=== PATIENT | female | born 1985 | race Two or more races ===

== ENCOUNTER 2017-04-15 13:29 | Inpatient (IN) | payer MEDICAID ==
[~2017-04-15] VITALS: Ht 152.4 cm; Wt 70.8 kg
[2017-04-15] MEDS ORDERED: SODIUM CHLORIDE 0.9% 500 ML IVB ONE (13:48)
[2017-04-15 14:38] LABS: Basophils # (auto) 0.1 uL; Basophils % (auto) 0.7 % (0.0-2.0); Eosinophils # (auto) 0.6 uL; Eosinophils % (auto) 7.4 % (0.0-7.0); Hematocrit 42.2 % (36.0-46.0); Hemoglobin 14.4 g/dL (12.2-16.2); Lymphocytes # (auto) 2.1 uL; Lymphocytes % (auto) 25.6 % (10.0-50.0); Mean Corpuscular Hemoglobin 31.5 pg (28.0-32.0); Mean Corpuscular Hgb Conc. 34.1 g/dL (32.0-36.0); Mean Corpuscular Volume 92.2 fL (80.0-100.0); Mean Platelet Volume 8.4 fL (6.9-10.8); Monocytes # (auto) 0.5 uL; Monocytes % (auto) 6.5 % (0.0-12.0); Neutrophils # (auto) 4.9 uL; Neutrophils % (auto) 59.8 % (37.0-80.0); Platelet Count (auto) 207 10^3/uL (140-450); White Blood Cell 8.2 10^3/uL (4.4-10.8)
[2017-04-15 14:52] LABS: Alkaline Phosphatase 106 U/L (45-117); Anion Gap 8 (5-15); Aspartate Aminotransferase 16 U/L (15-37); BUN/Creatinine Ratio 9.2; Bilirubin, Total 0.3 mg/dL (0.2-1.0); Blood Urea Nitrogen 7 mg/dL (7-18); Calcium 9.2 mg/dL (8.5-10.1); Carbon Dioxide 26 mmol/L (21-32); Chloride 107 mmol/L (98-107); GFR African American 115 mL/min; GFR Non-African American 95 mL/min; Glucose 79 mg/dL (74-106); Magnesium 2.4 mg/dL (1.6-2.6); Potassium 3.9 mmol/L (3.5-5.1); Sodium 141 mmol/L (136-145); Total Protein 7.8 g/dL (6.4-8.2)
[2017-04-15 16:18] LABS: Acetaminophen < 2.0 ug/mL (10-30); Salicylate < 1.7 mg/dL (2.8-20.0)
[2017-04-15] MEDS ORDERED: TEMAZEPAM 15 MG CAP PO PRN (16:45)
[2017-04-15] MEDS ORDERED: MORPHINE SULF INJ 2 MG/ML SYRINGE 1ML IV PRN (16:45)
[2017-04-15] MEDS ORDERED: HYDROcodone-ACET 5/325MG TAB PO PRN (16:45)
[2017-04-15] MEDS ORDERED: LACTULOSE 20Gm/30ML SOLN PO PRN (16:45)
[2017-04-15] MEDS ORDERED: HYDROmorphone HCL 2 MG/ML VL IV PRN (16:45)
[2017-04-15] MEDS ORDERED: LORazepam 2MG/ML-1ML VIAL IV PRN (16:45)
[2017-04-15] MEDS ORDERED: NITROGLYCERIN 0.4 MG SL TAB SL PRN (16:45)
[2017-04-15] MEDS ORDERED: ACETAMINOPHEN 500 MG TAB PO PRN (16:45)
[2017-04-15] MEDS ORDERED: PROMETHAZINE HCL 25 MG/ML 1ML IV PRN (16:45)
[2017-04-15] MEDS: SODIUM CHLORIDE 0.9% 1,000 ML IV SCH (17:28)
[2017-04-15 23:50] VITALS: BP 91/51
[2017-04-16 00:44] LABS: Urine Bilirubin Negative (Negative); Urine Blood Negative /uL (Negative); Urine Color Yellow (Yellow); Urine Glucose Normal (Normal); Urine Ketone Negative (Negative); Urine Nitrite Negative (Negative); Urine RBC <1 /hpf (0 - 4); Urine Squamous Epithelial Cell FEW /hpf (<5); Urine Urobilinogen Normal (Negative)
[2017-04-16] MEDS ORDERED: BUPR75TA9 PO (03:03)
[2017-04-16] MEDS ORDERED: FLUO-125 PO (03:03)
[2017-04-16] MEDS ORDERED: LURA80TA PO (03:03)
[2017-04-16] MEDS: SODIUM CHLORIDE 0.9% 1,000 ML IV SCH (03:06)
[2017-04-16 05:00] VITALS: BP 98/63
[2017-04-16 06:52] LABS: Albumin 3.2 g/dL (3.4-5.0); BUN/Creatinine Ratio 15.2; Bilirubin, Total 0.3 mg/dL (0.2-1.0); Calcium 8.3 mg/dL (8.5-10.1); Potassium 3.8 mmol/L (3.5-5.1); Total Protein 6.2 g/dL (6.4-8.2)
[2017-04-16 09:00] VITALS: BP 89/58
[2017-04-16 13:00] VITALS: BP 105/61
[2017-04-16 17:00] VITALS: BP 98/65
[2017-04-16] MEDS: buPROPion HCL 75 MG TAB PO SCH (18:37)
[2017-04-16 20:00] VITALS: BP 93/62
[2017-04-16] MEDS: LORazepam 0.5 MG TAB PO PRN (21:39)
[2017-04-16 22:00] VITALS: BP 93/62
[2017-04-17 05:00] VITALS: BP 112/52
[2017-04-17] MEDS: buPROPion HCL 75 MG TAB PO SCH ×2 (06:40→18:26)
[2017-04-17 08:59] VITALS: BP 93/52
[2017-04-17] MEDS: FLUoxetine HCL 20 MG CAP PO SCH (09:46)
[2017-04-17] MEDS ORDERED: LATUDA 40 MG PO SCH (10:00)
[2017-04-17] MEDS ORDERED: LURASIDONE 40 MG PO SCH (10:00)
[2017-04-17 12:55] VITALS: BP 103/68
[2017-04-17 17:00] VITALS: BP 92/53
[2017-04-17] MEDS: LORazepam 0.5 MG TAB PO PRN (19:32)
[2017-04-17 20:00] VITALS: BP 111/74
[2017-04-17 22:00] VITALS: BP 111/74
[2017-04-18] VITALS (7 sets, daily range): BP systolic 91–108; BP diastolic 55–69
[2017-04-18] MEDS ORDERED: diphenhdrAMINE HCL 25 MG CAP PO ONE ×2 (00:13→00:15)
[2017-04-18] MEDS ORDERED: ALBUTEROL SULF 2.5 MG/0.5ML(0.5%) NEB SOLN NEB PRN (00:15)
[2017-04-18] MEDS ORDERED: ALBUTEROL SULF 2.5 MG/0.5ML(0.5%) NEB SOLN ONE (00:18)
[2017-04-18] MEDS: buPROPion HCL 75 MG TAB PO SCH ×2 (06:09→18:27)
[2017-04-18] MEDS: FLUoxetine HCL 20 MG CAP PO SCH (10:52)
[2017-04-18] MEDS ORDERED: LURASIDONE 40 MG PO SCH (20:00)
[2017-04-18] MEDS: LATUDA (LURASIDONE) 80MG TABLET PO SCH (21:10)
[2017-04-19 05:05] VITALS: BP 93/58
[2017-04-19] MEDS: buPROPion HCL 75 MG TAB PO SCH ×2 (06:03→18:19)
[2017-04-19 09:00] VITALS: BP 109/74
[2017-04-19] MEDS: FLUoxetine HCL 20 MG CAP PO SCH (09:03)
[2017-04-19] MEDS ORDERED: LORATADINE 10 MG TAB PO ONE (11:00)
[2017-04-19 12:32] VITALS: BP 108/67
[2017-04-19] MEDS: LORazepam 0.5 MG TAB PO PRN (15:17)
[2017-04-19 16:53] VITALS: BP 87/57
[2017-04-19 17:16] VITALS: BP 111/69
[2017-04-19] MEDS: LATUDA (LURASIDONE) 80MG TABLET PO SCH (20:40)
[2017-04-19 21:46] VITALS: BP 101/64
[2017-04-20] MEDS: LORATADINE 10 MG TAB PO SCH (05:12)
[2017-04-20] MEDS: buPROPion HCL 75 MG TAB PO SCH ×2 (05:14→18:34)
[2017-04-20 05:39] VITALS: BP 104/61
[2017-04-20] MEDS: FLUoxetine HCL 20 MG CAP PO SCH (13:51)
[2017-04-20] MEDS: diphenhdrAMINE HCL 25 MG CAP PO PRN (13:52)
[2017-04-20 22:00] VITALS: BP 98/57
[2017-04-20] MEDS: LATUDA (LURASIDONE) 80MG TABLET PO SCH (22:21)
[2017-04-20] MEDS: LORazepam 0.5 MG TAB PO PRN (22:27)
[2017-04-21 05:00] VITALS: BP 98/53
[2017-04-21] MEDS: buPROPion HCL 75 MG TAB PO SCH (06:36)
[2017-04-21] MEDS: diphenhdrAMINE HCL 25 MG CAP PO PRN (06:42)
[2017-04-21 08:00] VITALS: BP 121/71
[2017-04-21 08:39] VITALS: BP 101/61
[2017-04-21] MEDS: LORATADINE 10 MG TAB PO SCH (10:34)
[2017-04-21] MEDS: FLUoxetine HCL 20 MG CAP PO SCH (10:34)
[2017-04-21 13:52] VITALS: BP 114/62
[2017-04-21 16:45] VITALS: BP 97/54
[2017-04-21 17:44] VITALS: BP 97/54
== END 2017-04-21 18:20 | disposition home or self-care (01) | DRG 812 ==
LOC: ER 13:29 → TELE 13:30 → ER 16:21 → TELE-EAST 23:30 → EAST 04-17 19:14
PROVIDERS: ADMIT Internal Medicine; ATTEND Internal Medicine
DX: T43.222A Poisoning by selective serotonin reuptake inhibitors, intentional self-harm, initial encounter (principal); G92 Toxic encephalopathy; F31.9 Bipolar disorder, unspecified; E66.9 Obesity, unspecified; J45.909 Unspecified asthma, uncomplicated; F41.9 Anxiety disorder, unspecified; T43.292A Poisoning by other antidepressants, intentional self-harm, initial encounter; Y92.89 Other specified places as the place of occurrence of the external cause; Z68.30 Body mass index [BMI] 30.0-30.9, adult
CPT/HCPCS: 36415; 80053; 80307; 80320; 80329; 81001; 83735; 85025; 87081; 93005; 94761; 96360

== ENCOUNTER 2017-05-19 13:55 | Emergency (ER) | payer MEDICAID ==
[~2017-05-19 13:55] MED LIST: BUPR75TA9 PO; FLUO-125 PO; LURA80TA PO
[2017-05-19] MEDS ORDERED: SODIUM CHLORIDE 0.9% 1,000 ML IV ONE (14:45)
[2017-05-19 15:07] LABS: Basophils # (auto) 0 uL; Basophils % (auto) 0.5 % (0.0-2.0); Eosinophils # (auto) 0.5 uL; Eosinophils % (auto) 7.7 % (0.0-7.0); Hematocrit 42.2 % (36.0-46.0); Lymphocytes # (auto) 2.5 uL; Lymphocytes % (auto) 36.8 % (10.0-50.0); Mean Corpuscular Hemoglobin 31.3 pg (28.0-32.0); Mean Corpuscular Hgb Conc. 33.3 g/dL (32.0-36.0); Mean Corpuscular Volume 94.1 fL (80.0-100.0); Mean Platelet Volume 7.7 fL (6.9-10.8); Monocytes # (auto) 0.4 uL; Monocytes % (auto) 5.1 % (0.0-12.0); Neutrophils # (auto) 3.4 uL; Neutrophils % (auto) 49.9 % (37.0-80.0); Nucleated Red Blood Cells % 0.1 %; Platelet Count (auto) 190 10^3/uL (140-450); Red Cell Distribution Width 13.4 % (11.8-14.3); White Blood Cell 6.8 10^3/uL (4.4-10.8)
[2017-05-19 15:27] LABS: Acetaminophen < 2.0 ug/mL (10-30); Salicylate < 1.7 mg/dL (2.8-20.0)
[2017-05-19 15:28] LABS: Albumin 3.7 g/dL (3.4-5.0); Alkaline Phosphatase 92 U/L (45-117); Anion Gap 8 (5-15); Aspartate Aminotransferase 12 U/L (15-37); BUN/Creatinine Ratio 15.5; Bilirubin, Total 0.3 mg/dL (0.2-1.0); Blood Urea Nitrogen 13 mg/dL (7-18); Calcium 8.8 mg/dL (8.5-10.1); Carbon Dioxide 27 mmol/L (21-32); Chloride 106 mmol/L (98-107); GFR African American 102 mL/min; GFR Non-African American 85 mL/min; Glucose 77 mg/dL (74-106); Potassium 3.9 mmol/L (3.5-5.1); Sodium 141 mmol/L (136-145); Total Protein 7.5 g/dL (6.4-8.2)
[2017-05-19 21:35] VITALS: BP 97/60
== END 2017-05-19 23:00 | disposition home or self-care (01) ==
LOC: ER 13:56
DX: T42.4X1A Poisoning by benzodiazepines, accidental (unintentional), initial encounter (principal); F32.9 Major depressive disorder, single episode, unspecified; J45.909 Unspecified asthma, uncomplicated; Z79.82 Long term (current) use of aspirin; Y92.89 Other specified places as the place of occurrence of the external cause
CPT/HCPCS: 36415; 80053; 80307; 80320; 80329; 81025; 82962; 84443; 85025; 93005; 96360; 96361; 99285; J7030